=== PATIENT | female | born 1970 | race African-American/Black ===

== ENCOUNTER 2018-05-31 19:48 | Emergency (ER) | payer SELFPAY ==
[2018-05-31 20:33] LABS: Mean Corpuscular HGB Conc 28 % (30-34)
[2018-05-31 20:50] LABS: Hematocrit 25.8 % (30.3-42.9); Hemoglobin 7.3 gm/dl (10.1-14.3); Mean Corpuscular Volume 56 fl (79-97)
[2018-05-31 20:51] LABS: Platelet Count 207 K/mm3 (140-440); Red Cell Distribution Width 25.2 % (13.2-15.2)
[2018-05-31 20:57] LABS: BUN/Creatinine Ratio 18; Blood Urea Nitrogen 9 mg/dL (7-17); Calcium 9.4 mg/dL (8.4-10.2); Hemolysis Index 2
--- NOTE | 2018-05-31 21:30 | Emergency Department Report ---
ED General Adult HPI - General Chief complaint: Recheck/Abnormal Lab/Rx Stated complaint: INTERNAL BLEEDING/CAME FROM [facility] Time Seen by Provider: 05/31/18 21:13 Source: patient Mode of arrival: Ambulatory Limitations: No Limitations - History of Present Illness Initial comments: Patient is a 47-year-old female who is here secondary to an abnormal lab finding prior to her visit. 2 days ago patient had a hemoglobin done while incarcerated that was 6.2. Patient has had some chills and mild headache. Patient has a history of heavy menses. Patient states that her last menses was proximally 2 weeks ago and lasted 7 days with heavy bleeding followed by several more days of spotting. Patient states this is been going on for quite some time. Patient denies any pain chest pain shortness of breath or lightheadedness. - Related Data Previous Rx's Medication Instructions Recorded Last Taken Type Docusate Sodium [Colace] 100 mg PO BID #30 capsule 05/31/18 Unknown Rx Ferrous Sulfate [Feosol 325 MG tab] 325 mg PO TID #90 tablet 05/31/18 Unknown Rx Allergies Allergy/AdvReac Type Severity Reaction Status Date / Time No Known Allergies Allergy Unverified 05/31/18 20:13 ED Review of Systems ROS: Stated complaint: INTERNAL BLEEDING/CAME FROM [facility] Other details as noted in HPI Comment: All other systems reviewed and negative ED Past Medical Hx - Past Medical History Previous Medical History?: No - Surgical History Past Surgical History?: Yes Additional Surgical History: Tubal Ligation, X2 - Social History Smoking Status: Former Smoker Substance Use Type: None - Medications Home Medications: Home Medications Medication Instructions Recorded Confirmed Last Taken Type Docusate Sodium [Colace] 100 mg PO BID #30 capsule 05/31/18 Unknown Rx Ferrous Sulfate [Feosol 325 MG tab] 325 mg PO TID #90 tablet 05/31/18 Unknown Rx ED Physical Exam - General Limitations: No Limitations General appearance: alert, in no apparent distress - Head Head exam: Present: atraumatic, normocephalic - Eye Eye exam: Present: normal appearance - ENT ENT exam: Present: mucous membranes moist - Neck Neck exam: Present: normal inspection - Respiratory Respiratory exam: Present: normal lung sounds bilaterally. Absent: respiratory distress, wheezes, rales, rhonchi - Cardiovascular Cardiovascular Exam: Present: regular rate, normal rhythm. Absent: systolic murmur, diastolic murmur, rubs, gallop - GI/Abdominal GI/Abdominal exam: Present: soft, normal bowel sounds. Absent: distended, tenderness, guarding, rebound - Extremities Exam Extremities exam: Present: normal inspection - Back Exam Back exam: Present: normal inspection - Neurological Exam Neurological exam: Present: alert, oriented X3 - Psychiatric Psychiatric exam: Present: normal affect, normal mood - Skin Skin exam: Present: warm, dry, intact, normal color. Absent: rash ED Course Vital Signs 05/31/18 05/31/18 20:05 21:38 Temperature 98 F Pulse Rate 76 Respiratory 20 17 Rate Blood Pressure 146/97 O2 Sat by Pulse 100 99 Oximetry ED Medical Decision Making - Lab Data Result diagrams: 05/31/18 20:25 05/31/18 20:25 Lab Results 05/31/18 05/31/18 05/31/18 Range/Units 20:18 20:25 20:25 WBC 9.8 (4.5-11.0) K/mm3 RBC 4.60 (3.65-5.03) M/mm3 Hgb 7.3 L (10.1-14.3) gm/dl Hct 25.8 L (30.3-42.9) % MCV 56 L (79-97) fl MCH 16 L (28-32) pg MCHC 28 L (30-34) % RDW 25.2 H (13.2-15.2) % Plt Count 207 (140-440) K/mm3 Add Manual Diff Complete Total Counted 100 Seg Neuts % (Manual) 69.0 (40.0-70.0) % Band Neutrophils % 2.0 % Lymphocytes % (Manual) 19.0 (13.4-35.0) % Reactive Lymphs % (Man) 0 % Monocytes % (Manual) 6.0 (0.0-7.3) % Eosinophils % (Manual) 3.0 (0.0-4.3) % Basophils % (Manual) 0 (0.0-1.8) % Metamyelocytes % 1.0 % Myelocytes % 0 % Promyelocytes % 0 % Blast Cells % 0 % Nucleated RBC % Not Reportable Seg Neutrophils # Man 6.8 (1.8-7.7) K/mm3 Band Neutrophils # 0.2 K/mm3 Lymphocytes # (Manual) 1.9 (1.2-5.4) K/mm3 Abs React Lymphs (Man) 0.0 K/mm3 Monocytes # (Manual) 0.6 (0.0-0.8) K/mm3 Eosinophils # (Manual) 0.3 (0.0-0.4) K/mm3 Basophils # (Manual) 0.0 (0.0-0.1) K/mm3 Metamyelocytes # 0.1 K/mm3 Myelocytes # 0.0 K/mm3 Promyelocytes # 0.0 K/mm3 Blast Cells # 0.0 K/mm3 WBC Morphology Not Reportable Hypersegmented Neuts Not Reportable Hyposegmented Neuts Not Reportable Hypogranular Neuts Not Reportable Smudge Cells Not Reportable Toxic Granulation Not Reportable Toxic Vacuolation Not Reportable Dohle Bodies Not Reportable Pelger-Huet Anomaly Not Reportable Karen Rods Not Reportable Platelet Estimate Consistent w auto Clumped Platelets Not Reportable Plt Clumps, EDTA Not Reportable Large Platelets Few Giant Platelets Not Reportable Platelet Satelliting Not Reportable Plt Morphology Comment Not Reportable RBC Morphology Not Reportable Dimorphic RBCs Not Reportable Polychromasia Few Hypochromasia 2+ Poikilocytosis 1+ Anisocytosis 3+ Microcytosis 3+ Macrocytosis Not Reportable Spherocytes Not Reportable Pappenheimer Bodies Not Reportable Sickle Cells Not Reportable Target Cells Not Reportable Tear Drop Cells Few Ovalocytes Not Reportable Helmet Cells Not Reportable Teran-[place] Bodies Not Reportable Goodrich Rings Not Reportable Reva Cells Not Reportable Bite Cells Not Reportable Crenated Cell Not Reportable Elliptocytes 1+ Acanthocytes (Spur) Not Reportable Rouleaux Not Reportable Hemoglobin C Crystals Not Reportable Schistocytes Not Reportable Malaria parasites Not Reportable Ricky Bodies Not Reportable Hem Pathologist Commnt No Sodium 140 (137-145) mmol/L Potassium 4.3 (3.6-5.0) mmol/L Chloride 103.5 (98-107) mmol/L Carbon Dioxide 26 (22-30) mmol/L Anion Gap 15 mmol/L BUN 9 (7-17) mg/dL Creatinine 0.5 L (0.7-1.2) mg/dL Estimated GFR > 60 ml/min BUN/Creatinine Ratio 18 % Glucose 106 H (65-100) mg/dL Calcium 9.4 (8.4-10.2) mg/dL HCG, Qual (Negative) Blood Type B POSITIVE Antibody Screen Negative 05/31/18 Range/Units 20:25 WBC (4.5-11.0) K/mm3 RBC (3.65-5.03) M/mm3 Hgb (10.1-14.3) gm/dl Hct (30.3-42.9) % MCV (79-97) fl MCH (28-32) pg MCHC (30-34) % RDW (13.2-15.2) % Plt Count (140-440) K/mm3 Add Manual Diff Total Counted Seg Neuts % (Manual) (40.0-70.0) % Band Neutrophils % % Lymphocytes % (Manual) (13.4-35.0) % Reactive Lymphs % (Man) % Monocytes % (Manual) (0.0-7.3) % Eosinophils % (Manual) (0.0-4.3) % Basophils % (Manual) (0.0-1.8) % Metamyelocytes % % Myelocytes % % Promyelocytes % % Blast Cells % % Nucleated RBC % Seg Neutrophils # Man (1.8-7.7) K/mm3 Band Neutrophils # K/mm3 Lymphocytes # (Manual) (1.2-5.4) K/mm3 Abs React Lymphs (Man) K/mm3 Monocytes # (Manual) (0.0-0.8) K/mm3 Eosinophils # (Manual) (0.0-0.4) K/mm3 Basophils # (Manual) (0.0-0.1) K/mm3 Metamyelocytes # K/mm3 Myelocytes # K/mm3 Promyelocytes # K/mm3 Blast Cells # K/mm3 WBC Morphology Hypersegmented Neuts Hyposegmented Neuts Hypogranular Neuts Smudge Cells Toxic Granulation Toxic Vacuolation Dohle Bodies Pelger-Huet Anomaly Karen Rods Platelet Estimate Clumped Platelets Plt Clumps, EDTA Large Platelets Giant Platelets Platelet Satelliting Plt Morphology Comment RBC Morphology Dimorphic RBCs Polychromasia Hypochromasia Poikilocytosis Anisocytosis Microcytosis Macrocytosis Spherocytes Pappenheimer Bodies Sickle Cells Target Cells Tear Drop Cells Ovalocytes Helmet Cells Teran-[place] Bodies Goodrich Rings Cinthia Cells Bite Cells Crenated Cell Elliptocytes Acanthocytes (Spur) Rouleaux Hemoglobin C Crystals Schistocytes Malaria parasites Ricky Bodies Hem Pathologist Commnt Sodium (137-145) mmol/L Potassium (3.6-5.0) mmol/L Chloride (98-107) mmol/L Carbon Dioxide (22-30) mmol/L Anion Gap mmol/L BUN (7-17) mg/dL Creatinine (0.7-1.2) mg/dL Estimated GFR ml/min BUN/Creatinine Ratio % Glucose (65-100) mg/dL Calcium (8.4-10.2) mg/dL HCG, Qual Negative (Negative) Blood Type Antibody Screen - Radiology Data Patient: LINDA BARAJAS MR#: [id number] : 1970 Acct:[id number] Age/Sex: 47 / F ADM Date: 05/31/18 Loc: ED Attending Dr: Ordering Physician: TOD LACY MD Date of Service: 05/31/18 Procedure(s): US transvaginal Accession Number(s): [id number] cc: TOD LACY MD FINAL REPORT EXAM: US TRANSVAGINAL HISTORY: heavy vag bleeing COMPARISON: None available. TECHNIQUE: Several real-time grayscale and color Doppler images were obtained. Transvaginal and transabdominal exam. FINDINGS: Uterus measures 11.8 x 5.7 x 8.5 centimeters. There is a dominant fibroid at the posterior body on the left measuring 4.2 by 3.8 x 5.3 centimeters. This distorts the endometrial stripe. Ovaries are not visualized. No adnexal masses are demonstrated. Trace fluid in the pelvis within physiologic limits. IMPRESSION: Dominant fibroid measuring up to 5.3 centimeters at the posterior body of the uterus. This distorts the endometrial stripe. No other uterine lesions. Ovaries are not visualized. No adnexal masses are demonstrated. Transcribed By: YAJAIRA Dictated By: JUANITA ALCAZAR MD Electronically Authenticated By: JUANITA ALCAZAR MD Signed Date/Time: 05/31/18 5771 - Medical Decision Making Patient with a large uterine fibroid diagnosed per ultrasound. Patient is not bleeding at this time and her hemoglobin has improved from the hemoglobin taken several days ago. Patient will be started on iron therapy and the patient will be discharged back into custody. Patient has been given [employer]IST follow-up. Critical care attestation.: If time is entered above; I have spent that time in minutes in the direct care of this critically ill patient, excluding procedure time. ED Disposition Clinical Impression: Microcytic anemia Uterine fibroid Qualifiers: Uterine leiomyoma location: unspecified location Qualified Code(s): D25.9 - Leiomyoma of uterus, unspecified Disposition: TO HOME OR SELFCARE Is pt being admited?: No Does the pt Need Aspirin: No Condition: Stable Instructions: Uterine Fibroids (ED), Iron Deficiency Anemia (ED) Referrals: KADE SWAN MD [Staff Physician] - 3-5 Days Time of Disposition: 23:47
[2018-05-31 21:33] LABS: Total Cells Counted 100
[2018-05-31 21:34] LABS: Anisocytosis 3+; Band Neutrophils # (Manual) 0.2 K/mm3; Basophils % (Manual) 0 % (0.0-1.8)
[2018-05-31 21:35] LABS: Hypochromasia 2+; Poikilocytosis 1+
[2018-05-31 21:37] LABS: Large Platelets Few
[2018-05-31 21:38] LABS: Platelet Estimate Consistent w Auto; Tear Drop Cells Few
--- NOTE | 2018-05-31 23:41 | Ultrasound Report ---
FINAL REPORT EXAM: US PELVIC COMPLETE HISTORY: heavy vag bleeing COMPARISON: None available. TECHNIQUE: Several real-time grayscale and color Doppler images were obtained. Transvaginal and brown sabdominal exam. FINDINGS: Uterus measures 11.8 x 5.7 x 8.5 centimeters. There is a dominant fibroid at the posterior body on th e left measuring 4.2 by 3.8 x 5.3 centimeters. This distorts the endometrial stripe. Ovaries are not visualized. No adnexal masses are demonstrated. Trace fluid in the pelvis within phys iologic limits. IMPRESSION: Dominant fibroid measuring up to 5.3 centimeters at the posterior body of the uterus. This distorts t he endometrial stripe. No other uterine lesions. Ovaries are not visualized. No adnexal masses are demonstrated.
[2018-06-01 00:48] VITALS: BP 115/53
== END 2018-06-01 00:30 | disposition home or self-care (01) ==
LOC: ED 19:48
DX: D25.9 Leiomyoma of uterus, unspecified (principal); D64.89 Other specified anemias; Z98.51 Tubal ligation status; Z87.891 Personal history of nicotine dependence
CPT/HCPCS: 36415; 76830; 76856; 80048; 84703; 85007; 85025; 86850; 86900; 86901